=== PATIENT | female | born 1955 | race Caucasian/White ===

== ENCOUNTER → 2022-10-09 | Outpatient (CLI) | payer MEDICARE ==
--- NOTE | 2022-10-09 13:40 | MM ---
Reason for Exam: Follow-up at short interval from prior study. Last screening mammogram was performed 8 month(s) ago. Patient History: Menarche at age 16. First Full-Term at age 32. Late child-bearing (after 30). Postmenopausal. Patient used Hormonal Contraceptives for 5 years. 01/25/2022, Stereotactic Core Biopsy on the Left side. Risk Values: Ayana 5 year model risk: 2.5%. Ayana 5 year model risk: 2.5%. NCI Lifetime model risk: 8.5%. NCI Lifetime model risk: 8.5%. Prior Study Comparison: 05/12/2019 Bilateral MG 3D screening mammo w/cad, [facility]. 01/18/2022 Bilateral MG 3D screening mammo w/cad, [facility]. 01/22/2022 Left MG work up mamm w CAD LT - 2, [facility]. Tissue Density: The breast tissue is heterogeneously dense. This may lower the sensitivity of mammography. Findings: Analyzed By CAD. Left biopsy clip. Benign appearing calcifications bilaterally. No or new suspicious masses or distortions. Overall Assessment: Benign, BI-RAD 2 Management: Screening Mammogram of both breasts in 1 year. A clinical breast exam by your physician is recommended on an annual basis and results should be correlated with mammographic findings. This exam should not preclude additional follow-up of suspicious palpable abnormalities. Results were given to the patient verbally at the time of exam. Electronically signed and approved by: Toney Lawler DO
== END | disposition home or self-care (01) ==
LOC: RADMAMWWP 12:33
PROVIDERS: ATTEND Hospitalist
DX: R92.8 Other abnormal and inconclusive findings on diagnostic imaging of breast (principal); Z78.0 Asymptomatic menopausal state
CPT/HCPCS: 77066; G0279; 77062

== ENCOUNTER → 2023-02-19 | Outpatient (CLI) | payer MEDICARE ==
--- NOTE | 2023-02-27 11:33 | MR ---
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 MRV of the brain: performed utilizing two-dimensional [id number]-[id number] technique MIP and 3-D reconstruc tion. Performed on a separate workstation. IV Contrast: None Findings: Vertebral arteries: The vertebral arteries are patent. Vertebral arteries are codominant. Basilar artery: The basilar artery is intact. The basilar artery bifurcation is normal. Internal Carotid arteries: The cervical, petrous, cavernous and supraclinoid segments are normal. HUDSON: Patent without evidence of aneurysm. ACOM: Patent without evidence of aneurysm. MCA: Patent without evidence of aneurysm. 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 PCOM: Hypoplastic bilaterally. There is no evidence of venous occlusion or collateral circulation. There is no evidence of sinus th rombosis. There is a dominant right atrophic left transverse sinus. IMPRESSION: 1. No evidence of venous sinus thrombosis. 2. No evidence of intracranial aneurysm or significant stenosis. 3. No evidence of venous sinus thrombosis.
== END | disposition home or self-care (01) ==
LOC: RADMRIMAIN 13:12
PROVIDERS: ATTEND Internal Medicine
DX: D18.02 Hemangioma of intracranial structures (principal)
CPT/HCPCS: 70544

== ENCOUNTER → 2023-06-19 | Outpatient (CLI) | payer MEDICARE ==
[2023-06-19 23:39] LABS: BUN/Creat Ratio 20.56 Ratio (12.00-20.00); Blood Urea Nitrogen 18.5 mg/dL (9.0-27.0); Calcium 10.1 mg/dL (8.7-10.3); Carbon Dioxide 28.1 mmol/L (21.6-31.8); Chloride 102 mmol/L (96-109); Glucose 109 mg/dL (70-110); Potassium 4.5 mmol/L (3.5-5.5); Sodium 140 mmol/L (135-145)
[2023-06-20 01:16] LABS: Albumin 4.6 d/dL (3.8-4.9); Protein, Total 7.7 d/dL (6.2-8.2)
[2023-06-20 15:50] LABS: Gamma Globulin 1.43 d/dL (0.70-1.50)
== END | disposition home or self-care (01) ==
LOC: LABWHC1 13:13
PROVIDERS: ATTEND Psychiatry & Neurology Neurology
DX: G62.9 Polyneuropathy, unspecified (principal)
CPT/HCPCS: 36415; 80048; 82607; 84165; 86334

== ENCOUNTER → 2023-07-02 | Outpatient (CLI) | payer MEDICARE ==
--- NOTE | 2023-07-02 12:44 | MR ---
EXAMINATION TYPE: MR brain wo/w con DATE OF EXAM: 07/02/2023 12:36 PM COMPARISON: 11/04/2020 HISTORY: MRI 2 year surveillance meningioma CONTRAST: Patient received 8 mL intravenous Gadavist gadolinium contrast. Multiplanar and multispin-echo imaging of the brain was performed . Pre and post contrast enhanced i mages are obtained. The ventricles, basal cisterns and sulci overlying the cerebral convexities are mildly enlarged. There is evidence of mild periventricular white matter ischemic demyelination. Remote deep white matter insults are also noted. No acute edema is seen on diffusion weighted imaging. There is no evidence for midline shift or mass effect. Acute intracranial hemorrhage or extra-axial collection is not evident. Again noted is an approximately 9 x 9 x 6 mm intensely enhancing lesion in the region of the tubercul um sella compatible with a stable meningioma. Overall morphology and size is unchanged. No new enhanc ing lesions are seen at this time. No local mass effects are seen. The paranasal sinuses and mastoid air cells are well-aerated. IMPRESSION: 1. Stable tuberculum sella meningioma. 2. Age-related atrophic and chronic small vessel ischemic changes.
== END | disposition home or self-care (01) ==
LOC: RADMRIMAIN 11:28
PROVIDERS: ATTEND Psychiatry & Neurology Neurology
DX: D32.9 Benign neoplasm of meninges, unspecified (principal); I67.82 Cerebral ischemia; G31.1 Senile degeneration of brain, not elsewhere classified
CPT/HCPCS: 70553; A9585

== ENCOUNTER → 2023-10-10 | Outpatient (CLI) | payer MEDICARE ==
[~2023-10-10] MED LIST: SODIUM CHLORIDE 0.9% 500 ML 500 ML in EMPTY BAG 1 BAG IV PRN; ZOLEDRONIC ACID 5 MG in SODIUM CHLORIDE 0.9% 100 ML IV NR
[2023-10-10 11:17] VITALS: BP 144/81; PULSE 67; RESP 15; TEMP 97.8
== END ==
LOC: PROCWHC3 10:22
PROVIDERS: ATTEND Internal Medicine
DX: M81.0 Age-related osteoporosis without current pathological fracture (principal); M85.851 Other specified disorders of bone density and structure, right thigh
CPT/HCPCS: 96365; J3489

== ENCOUNTER → 2024-02-13 | Outpatient (CLI) | payer MEDICARE ==
--- NOTE | 2024-02-13 15:00 | MM ---
Reason for Exam: Clinical finding. Last mammogram was performed 1 year(s) and 5 month(s) ago. Patient History: Menarche at age 16. First Full-Term at age 32. Late child-bearing (after 30). Postmenopausal. Patient used Hormonal Contraceptives for 5 years. 01/25/2022, Stereotactic Core Biopsy on the Left side. Risk Values: Ayana 5 year model risk: 2.5%. NCI Lifetime model risk: 8.2%. Tissue Density: The breasts are heterogeneously dense, which may obscure small masses. Findings: Analyzed By CAD. Microclip left breast biopsy. Inferior asymmetric density on the left lateral view does not persist on additional views. No significant change from prior exams. Overall Assessment: Incomplete: need additional imaging evaluation, BI-RAD 0 Management: Diagnostic Breast Ultrasound of both breasts. Axillary ultrasounds. Electronically signed and approved by: Maryana Higgins M.D. Radiologist
--- NOTE | 2024-02-13 20:08 | BD ---
EXAMINATION TYPE: Axial Bone Density DATE OF EXAM: 02/13/2024 CLINICAL HISTORY: 68 years old Female. ICD-10 CODE: M85.851 OTH DISRD OF BONE DENSITY AND STRUCTURE, R Height: 66.5 in Weight: 189 lbs RISK FACTORS HISTORY OF: History of Wrist Fracture: rt wrist fx age 19 MEDICATIONS: Thyroid Medications: yes Which medication: Levothyroxine How Lon+ years Osteoporosis Medications: yes Which medication: reclast How Lon EXAM MEASUREMENTS: Bone mineral densitometry was performed using the [employer] System. Bone mineral density as measured about the Lumbar spine is: ----- L1-L4(G/cm2): 1.012 T Score Values are as follows: ----- L1: -2.6 ----- L2: -3.2 ----- L3: -0.7 ----- L4: -0.2 ----- L1-L4: -1.4 Z Score Values are as follows: ----- L1: -1.6 ----- L2: -2.3 ----- L3: 0.3 ----- L4: 0.8 ----- L1-L4: -0.4 Bone mineral density baseline Bone mineral density about the R hip (g/cm2): 0.884 Bone mineral density about the L hip (g/cm2): 0.878 T Score values are as follows: -----R Neck: -1.8 -----L Neck: -1.6 -----R Total: -1.0 -----L Total: -1.0 Z Score values are as follows: -----R Neck: -0.7 -----L Neck: -0.4 -----R Total: -0.1 -----L Total: -0.2 Bone mineral density baseline FRAX%s: The graph provided illustrates a 10.5% chance for a major osteoporotic fx and a 1.7% chance f or the hips probability for fx in 10 years time. IMPRESSION: Osteopenia (T Score between -2.5 and -1). There is slightly increased risk of fracture and the patient may be considered for treatment. Re-Screen 2-5 years. NOTE: T-SCORE=SD OF THE YOUNG ADULT MEAN.
== END | disposition home or self-care (01) ==
LOC: RADBDWWP 12:32
PROVIDERS: ATTEND Internal Medicine
DX: Z13.820 Encounter for screening for osteoporosis (principal); R92.333 Mammographic heterogeneous density, bilateral breasts; M85.851 Other specified disorders of bone density and structure, right thigh; M85.89 Other specified disorders of bone density and structure, multiple sites; M81.0 Age-related osteoporosis without current pathological fracture; Z78.0 Asymptomatic menopausal state
CPT/HCPCS: 76882; 77062; 77066; 77080

== ENCOUNTER → 2024-03-09 | Outpatient (CLI) | payer MEDICARE ==
--- NOTE | 2024-03-09 09:29 | USB ---
Reason for Exam: Clinical finding. Patient History: Menarche at age 16. First Full-Term at age 32. Late child-bearing (after 30). Postmenopausal. Patient used Hormonal Contraceptives for 5 years. 01/25/2022, Stereotactic Core Biopsy on the Left side. Risk Values: Ayana 5 year model risk: 2.5%. NCI Lifetime model risk: 8.2%. Technique: Method: Whole Breast Handheld. Prior Study Comparison: 01/22/2022 Left MG work up mamm w CAD LT - 2, [facility]. 10/09/2022 Bilateral MG 3D diag mammo w/cad [facility]. 02/13/2024 Bilateral MG 3D diag mammo w/cad [facility]. Findings: The whole breast of both breasts, the axilla of both breasts and the retroareolar of both breasts were scanned. A complete US of all four quadrants of the breast, axilla, and retro-areolar region were reviewed. Right: At the 12:00 position, 1 cm from the nipple, there is a lobulated cyst measuring 6 x 5 x 5 mm and possibly containing some punctate calcifications. At the 6:00 position, 3 cm from the nipple, benign 8 mm cyst. No other solid or cystic lesion. Benign-appearing lymph nodes in the axilla, largest measuring 1.8 x 1.2 x 0.9 cm within uniform cortex and fatty hilum. This is in comparison to 1.6 x 1.2 x 0.9 cm, previously. Not significantly changed. Left: At the 1:00 position, 7 cm from the nipple, a 4 mm benign intramammary lymph node, mammographic correlate. At the 5:00 position, 3 cm from the nipple, a 4 mm cyst with some punctate calcifications. At the 9:00 position, 3 cm from the nipple, there is a benign 4 mm cyst. Punctate calcification of the nipple, mammographic correlate. Benign-appearing lymph nodes in the axilla, largest measuring 2.4 x 2.0 x 0.5 cm versus 2.3 x 0.5 cm, previously, not significantly changed. Overall Assessment: Benign, BI-RAD 2 Management: Screening Mammogram of both breasts in 11 months. Further clinical management of any axillary symptoms. If any enlarging palpable area is detected, the patient can be rescanned. A clinical breast exam by your physician is recommended on an annual basis and results should be correlated with mammographic findings. This exam should not preclude additional follow-up of suspicious palpable abnormalities. Results were given to the patient verbally at the time of exam. Electronically signed and approved by: Maryana Higgins M.D. Radiologist
== END | disposition home or self-care (01) ==
LOC: RADUSWWP 08:26
PROVIDERS: ATTEND Internal Medicine
DX: R92.8 Other abnormal and inconclusive findings on diagnostic imaging of breast (principal); Z78.0 Asymptomatic menopausal state

== ENCOUNTER → 2024-06-15 | Outpatient (CLI) | payer MEDICARE ==
--- NOTE | 2024-06-17 11:19 | BMR ---
EXAM DATE: 06/15/2024 EXAM DESCRIPTION: MRI-Breast Bilat (W/WO Contrast) INDICATION: Left arm lymphedema. History of previous left breast biopsy. COMPARISON: PRIOR MRIs: None. Correlation to mammograms: 02/13/2024 Correlation to ultrasound: 03/09/2024. CONTRAST: 8 cc Gadavist IV gadolinium contrast TECHNIQUE: Multiplanar multisequence MR imaging of both breasts was performed with a dedicated breast coil. Images were obtained before and after administration of IV gadolinium, using the standard breast mass protocol. Computer aided detection was utilized for interpretation. FINDINGS: LMP: Postmenopausal General breast composition: There are scattered areas of fibroglandular tissue Background parenchymal enhancement: Mild RIGHT BREAST: The T2 weighted series shows no areas of abnormal signal intensity. Review of the dynamic series shows no early or abnormal enhancement. LEFT BREAST: The T2 weighted series shows no areas of abnormal signal intensity. Review of the dynamic series shows no early or abnormal enhancement. LYMPH NODES: There is no evidence of internal mammary or axillary adenopathy. Miscellaneous findings:Small hiatal hernia IMPRESSION: RIGHT BREAST: No MR evidence of malignancy. LEFT BREAST: No MR evidence of malignancy. OVERALL ASSESSMENT -- BI- RADS 1: Negative ANNUAL SCREENING BREAST MRI IN ADDITION TO MAMMOGRAPHY IS RECOMMENDED IN PATIENTS WITH LIFETIME RISK OF BREAST CANCER >20% MTDD
== END | disposition home or self-care (01) ==
LOC: RADMRIMAIN 20:30
PROVIDERS: ATTEND Internal Medicine
DX: I89.0 Lymphedema, not elsewhere classified (principal)
CPT/HCPCS: 77049

== ENCOUNTER 2024-10-29 08:21 | Outpatient (CLI) | payer MEDICARE ==
[~2024-10-29 08:21] MED LIST changes: +SODIUM CHLORIDE 0.9% 250 ML in EMPTY BAG 1 BAG IV PRN; -SODIUM CHLORIDE 0.9% 500 ML 500 ML in EMPTY BAG 1 BAG IV PRN; -ZOLEDRONIC ACID 5 MG in SODIUM CHLORIDE 0.9% 100 ML IV NR
[2024-10-29 08:34] VITALS: BP 115/66; PULSE 62; RESP 16; TEMP 97.5
[2024-10-29] MEDS: SODIUM CHLORIDE 0.9% 500 ML 500 ML in EMPTY BAG 1 BAG IV PRN (08:35)
[2024-10-29] MEDS: ZOLEDRONIC ACID 5 MG in SODIUM CHLORIDE 0.9% 100 ML IV NR (08:36)
== END 2024-10-29 10:55 | disposition home or self-care (01) ==
LOC: PROCWHC3 08:21
PROVIDERS: ATTEND Internal Medicine
DX: M81.0 Age-related osteoporosis without current pathological fracture (principal); M85.851 Other specified disorders of bone density and structure, right thigh
CPT/HCPCS: 96365; J3489

== ENCOUNTER 2024-11-10 02:35 | Emergency (ER) | payer MEDICARE ==
[2024-11-10 02:39] VITALS: TEMP 97.7
--- NOTE | 2024-11-10 02:45 | ED ---
Syncope HPI - General Chief Complaint: Syncope Stated Complaint: syncope Time Seen by Provider: 11/10/24 02:44 Source: patient, RN notes reviewed, old records reviewed Mode of arrival: EMS Limitations: no limitations - History of Present Illness Initial Comments: This is a 65-year-old female to the ER for evaluation today. Patient presents after syncopal event. Patient has history of near syncope no prior memory of having a syncope event. Patient did donate blood today, that she went to the bathroom tonight out of sleep and hit the ground. Patient is unsure exactly what occurred around then but she did not have a headache no chest pain no abdo neno pain no shortness of breath, patient still feels very shaky here in the ER and anxious MD Complaint: loss of consciousness, collapsed -: minutes(s) Prodromal Symptoms: lightheaded Witnessed: no Current Symptoms: lightheaded History: previous syncopal episode Context: getting out of bed Treatments Prior to Arrival: none - Related Data Home Medications Medication Instructions Recorded Confirmed Atorvastatin [Lipitor] 40 mg PO DAILY 10/10/23 10/29/24 Calcium Carbonate/Vitamin D3 1 each PO DAILY 10/10/23 10/29/24 [Calcium 600-D3 20 mcg (800 Unit)] Cholecalciferol (Vitamin D3) 50 mcg PO DAILY 10/10/23 10/29/24 [Vitamin D3 (50 Mcg = 2000 Iu)] Escitalopram [Lexapro] 20 mg PO DAILY 10/10/23 10/29/24 Levothyroxine Sodium [Synthroid] 75 mcg PO DAILY 10/10/23 10/29/24 Losartan/Hydrochlorothiazide 1 tab PO DAILY 10/10/23 10/29/24 [Losartan-Hctz 100-12.5 mg Tab] Multivitamin [Multivitamins Adult 1 each PO DAILY 10/10/23 10/29/24 Gummies] [place]-3/Dha/Epa/Fish Oil [Fish Oil 1 cap PO DAILY 10/10/23 10/29/24 EC 1,200 mg Softgel] rOPINIRole HCL 0.25 mg PO DAILY 10/10/23 10/29/24 Allergies Allergy/AdvReac Type Severity Reaction Status Date / Time acetaminophen Allergy Rash/Hives Verified 11/10/24 02:39 [From Darjavedt-N] cefaclor [From Ceclor] Allergy Rash/Hives Verified 11/10/24 02:39 Penicillins Allergy Rash/Hives Verified 11/10/24 02:39 propoxyphene Allergy Rash/Hives Verified 11/10/24 02:39 [From ErikaEver] Review of Systems ROS Statement: Those systems with pertinent positive or pertinent negative responses have been documented in the HPI. ROS Other: All systems not noted in ROS Statement are negative. Past Medical History Additional Past Medical History / Comment(s): pancriatitis x2 History of Any Multi-Drug Resistant Organisms: None Reported Past Surgical History: Cholecystectomy Additional Past Surgical History / Comment(s): thermo ablasion Past Anesthesia/Blood Transfusion Reactions: Motion Sickness Past Psychological History: Depression Smoking Status: Never smoker General Exam General appearance: alert, in no apparent distress Head exam: Present: atraumatic, normocephalic, normal inspection Eye exam: Present: normal appearance, PERRL, EOMI. Absent: scleral icterus, conjunctival injection, periorbital swelling ENT exam: Present: normal exam, mucous membranes moist Neck exam: Present: normal inspection. Absent: tenderness, meningismus, lymphadenopathy Respiratory exam: Present: normal lung sounds bilaterally. Absent: respiratory distress, wheezes, rales, rhonchi, stridor Cardiovascular Exam: Present: regular rate, normal rhythm, normal heart sounds. Absent: systolic murmur, diastolic murmur, rubs, gallop, clicks GI/Abdominal exam: Present: soft, normal bowel sounds. Absent: distended, tenderness, guarding, rebound, rigid Extremities exam: Present: normal inspection, full ROM, normal capillary refill. Absent: tenderness, pedal edema, joint swelling, calf tenderness Back exam: Present: normal inspection Neurological exam: Present: alert, oriented X3, CN II-XII intact Psychiatric exam: Present: normal affect, normal mood Skin exam: Present: warm, dry, intact, normal color. Absent: rash Course Vital Signs 11/10/24 11/10/24 11/10/24 02:36 04:48 06:16 Temperature 97.7 F Pulse Rate 77 68 77 Respiratory 20 18 18 Rate Blood Pressure 123/57 111/60 123/53 O2 Sat by Pulse 100 100 98 Oximetry - Reevaluation(s) Reevaluation #1: 11/10/24 04:06 Medical records reviewed Reevaluation #2: No recurrent syncope here in the ER Reevaluation #3: Patient informed of results and questions answered Reevaluation #4: Was pt. sent in by a medical professional or institution (, [facility], [facility] [employer], urgent care, hospital, or residential...) When possible be specific @ -no Did you speak to anyone other than the patient for history (EMS, parent, family, police, friend...)? What history was obtained from this source @ -no Did you review nursing and triage notes (agree or disagree)? Why? @ -agree Are old charts reviewed (outside hosp., previous admission, EMS record, old EKG, old radiological studies, urgent care reports/EKG's, residential records)? Report findings @ -yes Differential Diagnosis (chest pain, altered mental status, abdominal pain women, abdominal pain men, vaginal bleeding, weakness, fever, dyspnea, syncope, headache, dizziness, GI bleed, back pain, seizure, CVA, palpatations, mental health, musculoskeletal)? @ -prior EKG interpreted by me (3pts min.). @ -yes X-rays interpreted by me (1pt min.). @ -no CT interpreted by me (1pt min.). @ -yes negative for acute disease U/S interpreted by me (1pt. min.). @ -no What testing was considered but not performed or refused? (CT, X-rays, U/S, labs)? Why? @ -none What meds were considered but not given or refused? Why? @ -none Did you discuss the management of the patient with other professionals (professionals i.e. , [facility], [facility] [employer] [facility], lab, RT, psych nurse, social media coordinator, supervisor home energy consultant, teacher, traffic maintenance officer, correctional case manager)? Give summary @ -no Was smoking cessation discussed for >3mins.? @ -no Was critical care preformed (if so, how long)? @ -no Were there social determinants of health that impacted care today? How? (Homelessness, low income, unemployed, alcoholism, drug addiction, transportation, low edu. Level, literacy, decrease access to med. care, halfway, re hab)? @ -none Was there de-escalation of care discussed even if they declined (Discuss DNR or withdrawal of care, Hospice)? DNR status @ -no What co-morbidities impacted this encounter? (DM, HTN, Smoking, COPD, CAD, Cancer, CVA, ARF, Chemo, Hep., AIDS, mental health diagnosis, sleep apnea, morbid obesity)? @ -none Was patient admitted / discharged? Hospital course, mention meds given and route, prescriptions, significant lab abnormalities, going to OR and other pertinent info. @ - 69 female to ER with a syncopal event with head injury. Patient has normal CT imaging here in the ER lab testing is normal patient feels well with no recurrent syncope here in the ER and can be discharged home Discharge Undiagnosed new problem with uncertain prognosis? @ -no Drug Therapy requiring intensive monitoring for toxicity (Heparin, Nitro, Insulin, Cardizem)? @ -no Were any procedures done? @ -no Diagnosis/symptom? @ -syncope Acute, or Chronic, or Acute on Chronic? @ -Acute Uncomplicated (without systemic symptoms) or Complicated (systemic symptoms)? @ -Complicated Side effects of treatment? @ -no Exacerbation, Progression, or Severe Exacerbation? @ -exacerbation Poses a threat to life or bodily function? How? (Chest pain, USA, NC, pneumonia, PE, COPD, DKA, ARF, appy, cholecystitis, CVA, Diverticulitis, Homicidal, Suicidal, threat to staff... and all critical care pts) @ -yes wcause of syncope Reevaluation #5: Differential Syncope: Valvular disease, hypertrophic cardiomyopathy, pulmonary embolism, tamponade, tachycardia, bradycardia, NC, hypovolemia, hemorrhage, dissection, anemia, intracranial hemorrhage, seizure, hypoglycemia, carbon monoxide poisoning, this is not meant to be an all-inclusive list. EKG Findings - EKG Comments: EKG Findings:: EKG is sinus 75 DE 161 QRS 87 QTc 450 - EKG Results: EKG: interpreted by TAYLOR Medical Decision Making - Medical Decision Making 69 female to ER with a syncopal event with head injury. Patient has normal CT imaging here in the ER lab testing is normal patient feels well with no recurrent syncope here in the ER and can be discharged home - Lab Data Result diagrams: 11/10/24 02:49 11/10/24 02:49 Lab Results 11/10/24 11/10/24 11/10/24 Range/Units 02:49 02:49 02:49 WBC 12.6 H (3.8-10.6) k/uL RBC 4.71 (3.80-5.40) m/uL Hgb 13.4 (11.4-16.0) gm/dL Hct 40.7 (34.0-46.0) % MCV 86.3 (80.0-100.0) fL MCH 28.4 (25.0-35.0) pg MCHC 33.0 (31.0-37.0) g/dL RDW 12.4 (11.5-15.5) % Plt Count 278 (150-450) k/uL MPV 7.5 Neutrophils % 66 % Lymphocytes % 24 % Monocytes % 7 % Eosinophils % 1 % Basophils % 1 % Neutrophils # 8.3 H (1.3-7.7) k/uL Lymphocytes # 3.0 (1.0-4.8) k/uL Monocytes # 0.9 (0-1.0) k/uL Eosinophils # 0.1 (0-0.7) k/uL Basophils # 0.1 (0-0.2) k/uL PT 12.8 H (10.0-12.5) sec INR 1.2 H (<1.2) APTT 23.8 (22.0-30.0) sec D-Dimer 0.55 (<0.60) mg/L FEU Sodium 133 L (137-145) mmol/L Potassium 3.0 L (3.5-5.1) mmol/L Chloride 98 (98-107) mmol/L Carbon Dioxide 18 L (22-30) mmol/L Anion Gap 17 mmol/L BUN 17 (7-17) mg/dL Creatinine 0.77 (0.52-1.04) mg/dL Est GFR (CKD-EPI)AfAm >90 (>60 ml/min/1.73 sqM) Est GFR (CKD-EPI)NonAf 79 (>60 ml/min/1.73 sqM) Glucose 206 H (74-99) mg/dL Calcium 10.0 (8.4-10.2) mg/dL Magnesium 1.7 (1.6-2.3) mg/dL Total Bilirubin 0.7 (0.2-1.3) mg/dL AST 38 H (14-36) U/L ALT 36 H (4-34) U/L Alkaline Phosphatase 94 (38-126) U/L Troponin I (0.000-0.034) ng/mL Total Protein 6.9 (6.3-8.2) g/dL Albumin 4.2 (3.5-5.0) g/dL Lipase (23-300) U/L 11/10/24 11/10/24 Range/Units 02:49 02:49 WBC (3.8-10.6) k/uL RBC (3.80-5.40) m/uL Hgb (11.4-16.0) gm/dL Hct (34.0-46.0) % MCV (80.0-100.0) fL MCH (25.0-35.0) pg MCHC (31.0-37.0) g/dL RDW (11.5-15.5) % Plt Count (150-450) k/uL MPV Neutrophils % % Lymphocytes % % Monocytes % % Eosinophils % % Basophils % % Neutrophils # (1.3-7.7) k/uL Lymphocytes # (1.0-4.8) k/uL Monocytes # (0-1.0) k/uL Eosinophils # (0-0.7) k/uL Basophils # (0-0.2) k/uL PT (10.0-12.5) sec INR (<1.2) APTT (22.0-30.0) sec D-Dimer (<0.60) mg/L FEU Sodium (137-145) mmol/L Potassium (3.5-5.1) mmol/L Chloride (98-107) mmol/L Carbon Dioxide (22-30) mmol/L Anion Gap mmol/L BUN (7-17) mg/dL Creatinine (0.52-1.04) mg/dL Est GFR (CKD-EPI)AfAm (>60 ml/min/1.73 sqM) Est GFR (CKD-EPI)NonAf (>60 ml/min/1.73 sqM) Glucose (74-99) mg/dL Calcium (8.4-10.2) mg/dL Magnesium (1.6-2.3) mg/dL Total Bilirubin (0.2-1.3) mg/dL AST (14-36) U/L ALT (4-34) U/L Alkaline Phosphatase (38-126) U/L Troponin I <0.012 (0.000-0.034) ng/mL Total Protein (6.3-8.2) g/dL Albumin (3.5-5.0) g/dL Lipase 156 (23-300) U/L - EKG Data -: EKG Interpreted by Me - Radiology Data Radiology results: report reviewed (CT brain C-spine negative for acute disease), image reviewed Disposition Clinical Impression: Vasovagal syncope, Syncope due to orthostatic hypotension Disposition: HOME SELF-CARE Condition: Fair Instructions (If sedation given, give patient instructions): Syncope (ED) Is patient prescribed a controlled substance at d/c from ED?: No Referrals: Mireya Delcid MD [Primary Care Provider] - 1-2 days Time of Disposition: 06:00
[2024-11-10] MEDS: SODIUM CHLORIDE 0.9% 1,000 ML IV STA ×2 (02:57→04:44)
[2024-11-10 03:06] LABS: Basophils # (A) 0.1 k/uL (0-0.2); Basophils % (A) 1 %; Eosinophils # (A) 0.1 k/uL (0-0.7); Eosinophils % (A) 1 %; HCT 40.7 % (34.0-46.0); HGB 13.4 gm/dL (11.4-16.0); Lymphocytes % (A) 24 %; MCH 28.4 pg (25.0-35.0); MCV 86.3 fL (80.0-100.0); Mean Platelet Volume 7.5; Monocytes # (A) 0.9 k/uL (0-1.0); Monocytes % (A) 7 %; Neutrophils # (A) 8.3 k/uL (1.3-7.7); Neutrophils % (A) 66 %; Platelet Count 278 k/uL (150-450); RBC 4.71 m/uL (3.80-5.40); RDW 12.4 % (11.5-15.5); WBC 12.6 k/uL (3.8-10.6)
[2024-11-10 03:18] LABS: INR 1.2 (<1.2); Partial Thromboplastin Time 23.8 sec (22.0-30.0); Prothrombin Time 12.8 sec (10.0-12.5)
[2024-11-10 03:20] LABS: ALT 36 U/L (4-34); AST 38 U/L (14-36); African American GFR (CKD) >90 (>60 ml/min/1.73 sqM); Albumin 4.2 g/dL (3.5-5.0); Alkaline Phosphatase 94 U/L (38-126); Anion Gap 17 mmol/L; Blood Urea Nitrogen 17 mg/dL (7-17); Carbon Dioxide 18 mmol/L (22-30); Chloride 98 mmol/L (98-107); Glucose 206 mg/dL (74-99); Magnesium 1.7 mg/dL (1.6-2.3); Non-African American GFR(CKD) 79 (>60 ml/min/1.73 sqM); Sodium 133 mmol/L (137-145); Total Bilirubin 0.7 mg/dL (0.2-1.3); Total Protein 6.9 g/dL (6.3-8.2)
[2024-11-10] MEDS ORDERED: ONDANSETRON 4 MG/2 ML VIAL IVP PRN (04:24)
--- NOTE | 2024-11-10 04:37 | CT ---
EXAM: CT Head Without Intravenous Contrast CLINICAL HISTORY: fall TECHNIQUE: Axial computed tomography images of the head/brain without intravenous contrast. CTDI is 45.2 mGy and DLP is 1443.3 mGy-cm. This CT exam was performed using one or more of the following dose reduction techniques: automated exposure control, adjustment of the mA and/or kV according to patient size, and/or use of iterative reconstruction technique. Coronal and sagittal reformatted images were created and reviewed. COMPARISON: brain MRI from 07/02/23 FINDINGS: Brain: Mild age-related generalized brain volume loss and chronic small vessel ischemic changes.. No hemorrhage. No significant white matter disease. No edema. Ventricles: Unremarkable. No ventriculomegaly. Bones/joints: No acute findings. Soft tissues: Unremarkable. Sinuses: Unremarkable as visualized. No acute sinusitis. Mastoid air cells: Unremarkable as visualized. No mastoid effusion. IMPRESSION: No intracranial findings. EXAM: CT Cervical Spine Without Intravenous Contrast CLINICAL HISTORY: fall TECHNIQUE: Axial computed tomography images of the cervical spine without intravenous contrast. CTDI is 11.6 mGy and DLP is 350.3 mGy-cm. This CT exam was performed using one or more of the following dose reduction techniques: automated exposure control, adjustment of the mA and/or kV according to patient size, and/or use of iterative reconstruction technique. Coronal and sagittal reformatted images were created and reviewed. COMPARISON: No relevant prior studies available. FINDINGS: Vertebrae: Unremarkable. No fracture. Discs/spinal canal/neural foramina: No acute findings. Soft tissues: Unremarkable. IMPRESSION: No fracture or subluxation
[2024-11-10] MEDS: POTASSIUM CHLORIDE ER 20 MEQ TAB.ER PO STA ×2 (04:39)
[2024-11-10] MEDS: ONDANSETRON 4 MG/2 ML VIAL IVP STA (04:40)
[2024-11-10] MEDS: MAGNESIUM OXIDE 400 MG TAB PO STA ×2 (04:40)
[2024-11-10 04:48] VITALS: RESP 18
[2024-11-10] MEDS: LORazepam 2 MG/ML INJ IV STA (05:31)
[2024-11-10 06:17] VITALS: PULSE 77
[2024-11-10 06:18] VITALS: BP 123/53
== END 2024-11-10 06:59 | disposition home or self-care (01) ==
LOC: EC 02:35
DX: R55 Syncope and collapse (principal)
CPT/HCPCS: 36415; 93005; 85379; 80053; 83690; 83735; 84484; 85025; 85610; 85730; 72125; 70450; 99285; 96374; 96375; 96361 ×3; J2060; J2405

== ENCOUNTER → 2024-11-17 | Outpatient (CLI) | payer MEDICARE ==
--- NOTE | 2024-11-17 14:56 | US ---
EXAMINATION TYPE: US carotid duplex BILAT DATE OF EXAM: 11/17/2024 COMPARISON: NONE CLINICAL INDICATION: Female, 69 years old with history of I65.23 CAROTID STENOSIS; stenosis Additional History: .... TECHNIQUE: Grayscale, color Doppler and spectral Doppler evaluation of the bilateral carotid systems and vertebral arteries. Indirect Doppler criteria was utilized. FINDINGS: EXAM MEASUREMENTS: RIGHT: Peak Systolic Velocity (PSV) cm/sec ----- Right CCA: 90.3 ----- Right ICA: 70.2 ----- Right ECA: 120 ICA/CCA ratio: .8 RIGHT: End Diastole cm/sec ----- Right CCA: 14.3 ----- Right ICA: 20.1 ----- Right ECA: 9.0 LEFT: Peak Systolic Velocity (PSV) cm/sec ----- Left CCA: 110 ----- Left ICA: 73 ----- Left ECA: 93.5 ICA/CCA ratio: .7 LEFT: End Diastole cm/sec ----- Left CCA: 13.9 ----- Left ICA: 20.5 ----- Left ECA: 10.7 VERTEBRALS (direction of flow): Right Vertebral: Antegrade Left Vertebral: Antegrade Rhythm: Normal BEAD PICKER NOTES: No significant stenosis seen Color Doppler imaging shows patency with blood flow throughout the carotid artery. Spectral waveforms are within normal limits. IMPRESSION: Right: No hemodynamically significant stenosis. Left: No hemodynamically significant stenosis. Criteria for Assigning % of Stenosis / Diameter reduction (Estimation based on the indirect measurements of the internal carotid artery velocities (ICA PSV). 1. Normal (no stenosis)=ICA PSV < 125 cm/s: ratio < 2.0: ICA EDV<40 cm/s. 2. Less than 50% stenosis=ICA PSV < 125 cm/s: ratio < 2.0: ICA EDV<40 cm/s. 3. 50 to 69% stenosis=ICA PSV of 125 to 230 cm/s: ration 2.0 ? 4.0: ICA EDV 40-100 cm/s. 4. Greater than 70% stenosis to near occlusion= ICA PSV > 230 cm/s: ratio > 4.0: ICA EDV > 100 cm/s. 5. Near occlusion= ICA PSV velocities may be low or undetectable: variable ratio and ICA EDV. 6. Total occlusion=unable to detect flow. [facility], , 11/17/2024 2:54 PM
--- NOTE | 2024-11-17 15:01 | CA ---
Transthoracic Echo Report Name: Samantha Thrasher Age: 69 Gender: F : 1955 Exam Date: 11/17/2024 13:44 Exam Location: [facility] Ht (in): 67 Wt (lb): 179 Ordering Physician: Mireya Delcid MD Attending/Referring Phys: [employer] Super[employer] Nelsy El RDCS Procedure CPT: Indications: I65.23 OCCLUSION AND STENOSIS OF BILATERAL CAROTID Cardiac Hx: Technical Quality: Fair Contrast 1: Total Dose (mL): Contrast 2: Total Dose (mL): MEASUREMENTS (Male / Female) Normal Values 2D ECHO LV Diastolic Diameter PLAX 4.7 cm 4.2 - 5.9 / 3.9 - 5.3 cm LV Systolic Diameter PLAX 3.1 cm IVS Diastolic Thickness 1.1 cm 0.6 - 1.0 / 0.6 - 0.9 cm LVPW Diastolic Thickness 1.1 cm 0.6 - 1.0 / 0.6 - 0.9 cm LV Relative Wall Thickness 0.5 RV Internal Dim ED PLAX 2.5 cm LA Systolic Diameter LX 3.7 cm 3.0 - 4.0 / 2.7 - 3.8 cm LV Diastolic Volume MOD BP 60.1 cm??? 67 - 155 / 56 - 104 cm??? LV Systolic Volume MOD BP 21.7 cm??? 22 - 58 / 19 - 49 cm??? LV Ejection Fraction MOD BP 63.9 % >= 55 % LV Cardiac Index MOD BP 1300.7 cm???/min???m??? LV Diastolic Volume MOD 4C 64.4 cm??? LV Systolic Volume MOD 4C 21.3 cm??? LV Ejection Fraction MOD 4C 66.9 % LV Cardiac Index MOD 4C 1459.0 cm???/min???m??? LV Diastolic Length 4C 6.9 cm LV Systolic Length 4C 5.3 cm LV Diastolic Volume MOD 2C 52.1 cm??? LV Systolic Volume MOD 2C 21.6 cm??? LV Ejection Fraction MOD 2C 58.6 % LV Cardiac Index MOD 2C 1034.9 cm???/min???m??? LV Diastolic Length 2C 6.4 cm LV Systolic Length 2C 5.1 cm M-MODE Aortic Root Diameter MM 2.6 cm LA Systolic Diameter MM 3.5 cm LA Ao Ratio MM 1.3 AV Cusp Separation MM 1.9 cm DOPPLER AV Peak Velocity 172.8 cm/s AV Peak Gradient 11.9 mmHg Mitral E Point Velocity 104.7 cm/s Mitral A Point Velocity 111.2 cm/s Mitral E to A Ratio 0.9 MV Deceleration Time 247.6 ms MV E' Velocity 8.7 cm/s Mitral E to MV E' Ratio 12.1 TR Peak Velocity 242.3 cm/s TR Peak Gradient 23.5 mmHg Right Ventricular Systolic Press 34.0 mmHg FINDINGS Left Ventricle Left ventricular ejection fraction is estimated at 55-60%. Mildly increased septal wall thickness. Mildly increased posterior wall thickness. Normal left ventricular systolic function with no obvious regional wall motion abnormalities. Left ventricular cavity size normal. Right Ventricle Normal right ventricular size and function. Right ventricular systolic pressure within normal limits. Right Atrium Normal right atrial size. Left Atrium Mild left atrial dilatation. Mitral Valve Structurally normal mitral valve. Mild mitral regurgitation. No mitral stenosis. Aortic Valve Trileaflet aortic valve. No aortic valve stenosis or regurgitation. Tricuspid Valve Structurally normal tricuspid valve. Mild tricuspid regurgitation. No tricuspid stenosis. Pulmonic Valve Structurally normal pulmonic valve. Trace pulmonic regurgitation. No pulmonic stenosis. Pericardium No pericardial or pleural effusion. Aorta Normal size aortic root and proximal ascending aorta. CONCLUSIONS Left ventricular ejection fraction is estimated at 55-60% Mild mitral regurgitation Mild tricuspid regurgitation No pericardial or pleural effusion Previewed by: Dr. Fili Vallecillo DO (Electronically Signed) Final Date: 17 November 2024 15:00
== END | disposition home or self-care (01) ==
LOC: RADECHMAIN 13:25
PROVIDERS: ATTEND Internal Medicine
DX: I65.23 Occlusion and stenosis of bilateral carotid arteries (principal); I25.10 Atherosclerotic heart disease of native coronary artery without angina pectoris; I08.1 Rheumatic disorders of both mitral and tricuspid valves
CPT/HCPCS: 93306; 93880

== ENCOUNTER → 2024-12-03 | Outpatient (CLI) | payer MEDICARE ==
--- NOTE | 2025-01-04 16:19 | P.CEMON ---
30 Day Event monitor note: Patient wore an event monitor for 26 days from 12/03/2024 through 01/01/2025. Findings: Patient's baseline heart rate was normal sinus rhythm. There were no signficant atrial fibrillation, atrial flutter, or ventricular tachycardia episodes. There were no significant pauses greater than 2 seconds. There were rare PACs and PVCs representing less than 1% PVC burden There were 5 patient activated events with 1 episode of skipped beat correlating with accelerated junctional rhythm Conclusions: 30-day event monitor worn for 26 days showing normal sinus rhythm and rare PACs and PVCs 1 episode of skipped beat correlating with accelerated junctional rhythm
--- NOTE | 2025-01-06 08:57 | EM ---
30 Day Event monitor note: Patient wore an event monitor for 26 days from 12/03/2024 through 01/01/2025. Findings: Patient's baseline heart rate was normal sinus rhythm. There were no significant atrial fibrillation, atrial flutter, or ventricular tachycardia episodes. There were no significant pauses greater than 2 seconds. There were rare PACs and PVCs representing less than 1% PVC burden There were 5 patient activated events with 1 episode of skipped beat correlating with accelerated junctional rhythm Conclusions: 30-day event monitor worn for 26 days showing normal sinus rhythm and rare PACs and PVCs 1 episode of skipped beat correlating with accelerated junctional rhythm. MTDD
== END | disposition home or self-care (01) ==
LOC: RADECHMAIN 13:38
PROVIDERS: ATTEND Internal Medicine
DX: I49.3 Ventricular premature depolarization (principal); I49.8 Other specified cardiac arrhythmias
CPT/HCPCS: 93270

== ENCOUNTER → 2025-01-06 | Outpatient (CLI) | payer MEDICARE ==
--- NOTE | 2025-01-06 10:36 | XR ---
EXAMINATION TYPE: XR knee limited LT DATE OF EXAM: 01/06/2025 10:24 AM COMPARISON: None CLINICAL INDICATION: Female, 69 years old with history of M25.562 PAIN IN LEFT KNEE; PHH, pain TECHNIQUE: 2 views. FINDINGS: There is tricompartmental degenerative spurring. Moderate narrowing of cartilage and joint space in t he medial compartment. No significant knee joint effusion. Extensor mechanism appears intact. No acut e fracture, subluxation, or dislocation seen. 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 This could be better as sessed with a weight bearing view. No acute osseous abnormality seen on these limited 2 views. [facility], , 01/06/2025 10:34 AM
== END | disposition home or self-care (01) ==
LOC: RADXRMAIN 10:15
PROVIDERS: ATTEND Internal Medicine
DX: M17.12 Unilateral primary osteoarthritis, left knee (principal)

== ENCOUNTER → 2025-04-09 | Outpatient (CLI) | payer MEDICARE ==
--- NOTE | 2025-04-09 18:12 | MR ---
EXAMINATION TYPE: MR pancreas wo/w con DATE OF EXAM: 04/09/2025 5:35 PM COMPARISON: None CLINICAL INDICATION: Female, 69 years old with history of R11.2; PHH, nausea and vomiting TECHNIQUE: Multiplanar multi-sequence imaging was performed without contrast. Post contrast imaging was performed. Post IV contrast subtraction images were also submitted for review. IV Contrast: 8 mL Gadobutrol FINDINGS: LOWER CHEST: No gross irregularity. ABDOMEN Liver: No evidence for hepatic steatosis or cirrhosis. Signal dropout on chemical shift in phase imag ing. There is an area of altered enhancement within the liver near the gallbladder fossa and extendin g peripherally. This becomes progressive wash in on delayed imaging which could represent scarring. S imple appearing left hepatic lobe cyst in segment 4A. Gallbladder and Bile ducts: No evidence for ductal dilation, or biliary stricture or evidence of chol edocholithiasis. The gallbladder surgically absent. The common hepatic duct measures up to 7 mm and t he common bile duct up to 4 mm Pancreas: No ductal dilation. No evidence for solid mass. Spleen: Normal for size. Signal dropout on chemical shift in phase imaging. Adrenal glands: Unremarkable. Kidneys: No evidence for obstructive uropathy. No suspicious renal masses. Stomach and Bowel: No evidence for bowel wall thickening or evidence for obstruction. The appendix is normal. Retroperitoneum/Peritoneum: No evidence of pneumoperitoneum or free fluid. Vasculature: No aortic aneurysm. Musculoskeletal: The osseous structures appear intact. Lymph Nodes: No gross evidence for lymphadenopathy. Abdominal wall: Unremarkable. IMPRESSION: 1. Indeterminate enhancing area near the gallbladder fossa unclear if this is a postsurgical change/ scarring correlate for recent cholecystectomy. Short-term follow-up in 3 months recommended to ensure stability with MRI with IV contrast. 2. No evidence for acute abdominal process. 3. Iron deposition within the liver and spleen. 4. The gallbladder appears surgically absent. [facility], , 04/09/2025 6:09 PM
== END | disposition home or self-care (01) ==
LOC: RADMRIMAIN 16:34
PROVIDERS: ATTEND Internal Medicine
DX: R11.2 Nausea with vomiting, unspecified (principal); Z90.49 Acquired absence of other specified parts of digestive tract
CPT/HCPCS: 74183; A9585